=== PATIENT | male | born 1960 | race Caucasian/White ===

== ENCOUNTER → 2019-09-26 | Outpatient (CLI) | payer MEDICARE, MEDICAID | LOC: M SLEEP 19:06 | PROVIDERS: ATTEND Nurse Practitioner Family | DX: R06.83 Snoring (principal) ==

== ENCOUNTER → 2019-11-07 | Outpatient (CLI) | payer MEDICARE, MEDICAID ==
--- NOTE | 2019-11-08 19:58 | SLEEPCENT ---
DATE OF PROCEDURE: 11/07/2019 ORDERED BY: KAROL Montemayor Nocturnal polysomnography was performed for the titration of pressure therapy in this patient with obstructive sleep apnea syndrome, apnea-hypopnea index of 57. For testing the patient was fit with a [employer] Quattro full face mask of medium size, 4 cm of water pressure were applied to the circuit and the lights were extinguished. 8 hours and 40 minutes of data were reviewed. There were 453 minutes of sleep identified. Sleep latency was normal at 17 minutes. Rapid eye movement (REM) latency was short at 40 minutes. Sleep architecture was good with five REM cycles. Overall sleep efficiency was 88%. The patient's electrocardiogram showed atrial fibrillation with a controlled ventricular response rate of 70 beats per minute. EEG showed normal waveforms for awake and sleep. Respiratory events were found best palliated with continuous positive airway pressure (CPAP) at a pressure of +12. There was minimal limb activity and remaining measures of sleep physiology were normal. IMPRESSION: Obstructive sleep apnea syndrome (G47.33). RECOMMENDATIONS: Nightly use of pressure therapy 12 cm of water.
== END ==
LOC: M SLEEP 20:00
PROVIDERS: ATTEND Nurse Practitioner Family
DX: G47.33 Obstructive sleep apnea (adult) (pediatric) (principal)

== ENCOUNTER → 2022-01-15 | Outpatient (CLI) | payer MEDICARE, MEDICAID | LOC: M SLEEP 20:00 | PROVIDERS: ATTEND Nurse Practitioner Family | DX: G47.33 Obstructive sleep apnea (adult) (pediatric) (principal) ==